=== PATIENT | male | born 1945 | race Caucasian/White ===

== ENCOUNTER 2019-09-26 04:45 | Emergency (ER) | payer SELFPAY ==
[~2019-09-26] VITALS: Ht 162.6 cm; Wt 73.0 kg
[2019-09-26 05:44] LABS: BASOPHILS % 0.7 % (0.0-2.0); EOSINOPHILS % 4.1 % (0.0-5.0); HEMATOCRIT. 43.4 % (42.0-52.0); HEMOGLOBIN. 14.8 g/dL (14.0-18.0); LYMPHOCYTES % 18.8 % (20.0-50.0); MEAN CORPUSCULAR HEMOGLOBIN 29.8 pg (28.0-32.0); MEAN CORPUSCULAR VOLUME 87.3 fL (80.0-94.0); MEAN PLATELET VOLUME 7.5 fl (7.4-10.4); MONOCYTES % 5.2 % (2.0-8.0); NEUTROPHILS % 71.2 % (40.0-76.0); PLATELET 198 x1000/uL (130-400); RED BLOOD CELL COUNT 4.97 mill/uL (4.7-6.1); RED CELL DISTRIBUTION WIDTH 14.6 % (11.6-14.6)
[2019-09-26 05:48] LABS: CHLORIDE 108 mEq/L (98-107)
[2019-09-26 06:03] LABS: CLARITY URINE CLEAR (CLEAR); COLOR URINE ORANGE (YELLOW); KETONES URINE NEGATIVE (NEGATIVE); LEUKOCYTE ESTERASE URINE NEGATIVE (NEGATIVE); NITRITE URINE NEGATIVE (NEGATIVE); OCCULT BLOOD URINE 3+ (NEGATIVE); PROTEIN URINE 3+ (NEGATIVE); SPECIFIC GRAVITY URINE 1.011 (1.005-1.030); UROBILINOGEN URINE 0.2 E.U./dL (0.2-1.0)
[2019-09-26 06:50] VITALS: BP 192/94
== END 2019-09-26 07:16 | disposition home or self-care (01) ==
LOC: ER 04:45
DX: R33.9 Retention of urine, unspecified (principal); I10 Essential (primary) hypertension; Z98.890 Other specified postprocedural states
CPT/HCPCS: 36415; 51702; 80053; 81003; 85025; 99284

== ENCOUNTER 2019-09-26 16:23 | Emergency (ER) | payer SELFPAY ==
[~2019-09-26] VITALS: Ht 162.6 cm; Wt 68.0 kg
[2019-09-26 19:02] LABS: CLARITY URINE CLEAR (CLEAR); COLOR URINE YELLOW (YELLOW); KETONES URINE NEGATIVE (NEGATIVE); LEUKOCYTE ESTERASE URINE TRACE (NEGATIVE); NITRITE URINE NEGATIVE (NEGATIVE); OCCULT BLOOD URINE 3+ (NEGATIVE); PH URINE 6.5 (4.5-8.0); PROTEIN URINE 3+ (NEGATIVE); UROBILINOGEN URINE 0.2 E.U./dL (0.2-1.0)
[2019-09-26 19:30] VITALS: BP 174/100
[2019-09-26] MEDS ORDERED: CEFTRIAXONE SODIUM 1 G/VIAL IM ONE (19:30)
== END 2019-09-26 19:59 | disposition home or self-care (01) ==
LOC: ER 16:23
DX: N39.0 Urinary tract infection, site not specified (principal); I10 Essential (primary) hypertension; Z98.890 Other specified postprocedural states
CPT/HCPCS: 81003; 87086; 96372; 99283; J0696